=== PATIENT | male | born 1955 | race Caucasian/White ===

== ENCOUNTER 2021-03-01 14:05 | Emergency (ER) | payer BC, OTHER ==
[2021-03-01] MEDS ORDERED: Oxymetazoline 0.05% Nasal Spray 30 ML Bottle NAS STA (14:30)
--- NOTE | 2021-03-01 14:55 | EDM.PDOC ---
ED HPI GENERAL MEDICAL PROBLEM - General Chief Complaint: ENT Problem Stated Complaint: NOSE BLEED Time Seen by Provider: 03/01/21 14:23 Source of Information: Reports: Patient, RN Notes Reviewed History Limitations: Reports: No Limitations - History of Present Illness INITIAL COMMENTS - FREE TEXT/NARRATIVE: Patient is a 65-year-old male presenting to the emergency department with complaints of a left-sided nosebleed that began approximately 15 minutes prior to arrival to ER. States has had a couple nosebleeds over the last couple days but they have all resolved on their own. The nosebleeds have all been in the left nare. He reports that he did feel blood running down the back of his throat, however this is no longer occurring. Bleeding of the nare had resolved at the time of my exam. He has not been using any moisturizers to his naris since the nosebleeds began. Patient does seem quite anxious. States he felt lightheaded. Denies any chest pain or shortness of breath. - Related Data Allergies Allergy/AdvReac Type Severity Reaction Status Date / Time No Known Allergies Allergy Verified 03/01/21 14:21 Past Medical History Cardiovascular History: Reports: Hypertension Endocrine/Metabolic History: Reports: Diabetes, Type II Social & Family History - Tobacco Use Tobacco Use Status *Q: Never Tobacco User Second Hand Smoke Exposure: No - Caffeine Use Caffeine Use: Reports: Coffee - Recreational Drug Use Recreational Drug Use: No ED ROS ENT - Review of Systems Review Of Systems: Comprehensive ROS is negative, except as noted in HPI. ED EXAM, ENT - Physical Exam Exam: See Below Exam Limited By: No Limitations General Appearance: Alert, WD/WN, No Apparent Distress Nose: Normal Inspection, Dried Blood (Left nare). No: Active Bleeding Mouth/Throat: Normal Inspection, Normal Gums, Normal Lips, Normal Oropharynx, Normal Teeth Respiratory/Chest: No Respiratory Distress, Lungs Clear, Normal Breath Sounds, No Accessory Muscle Use, Chest Non-Tender Cardiovascular: Normal Peripheral Pulses, Regular Rate, Rhythm, No Edema, No Gallop, No JVD, No Murmur, No Rub Neurological: Alert, Oriented, CN II-XII Intact, Normal Cognition, Normal Gait, Normal Reflexes, No Motor/Sensory Deficits Psychiatric: Normal Affect, Normal Mood Skin: Warm, Dry, Intact, Normal Color, No Rash Course - Vital Signs Last Recorded V/S: Last Vital Signs Temp 98.2 F 03/01/21 14:20 Pulse 110 H 03/01/21 14:20 Resp 16 03/01/21 14:20 BP 168/89 H 03/01/21 14:20 Pulse Ox 96 03/01/21 14:20 - Orders/Labs/Meds Labs: Laboratory Tests 03/01/21 Range/Units 14:40 WBC 7.03 (4.23-9.07) K/mm3 RBC 4.88 (4.63-6.08) M/mm3 Hgb 14.7 (13.7-17.5) gm/dl Hct 42.5 (40.1-51.0) % MCV 87.1 (79.0-92.2) fl MCH 30.1 (25.7-32.2) pg MCHC 34.6 (32.2-35.5) g/dl RDW Std Deviation 40.5 (35.1-43.9) fL Plt Count 173 (163-337) K/mm3 MPV 10.2 (9.4-12.3) fl Neut % (Auto) 53.5 (34.0-67.9) % Lymph % (Auto) 37.7 (21.8-53.1) % [place] % (Auto) 7.3 (5.3-12.2) % Eos % (Auto) 0.9 (0.8-7.0) Baso % (Auto) 0.3 (0.1-1.2) % Neut # (Auto) 3.77 (1.78-5.38) K/mm3 Lymph # (Auto) 2.65 (1.32-3.57) K/mm3 [place] # (Auto) 0.51 (0.30-0.82) K/mm3 Eos # (Auto) 0.06 (0.04-0.54) K/mm3 Baso # (Auto) 0.02 (0.01-0.08) K/mm3 Meds: Medications Discontinued Medications Generic Name Dose Route Start Last Admin Trade Name Freq PRN Reason Stop Dose Admin Oxymetazoline HCl 1 ml 03/01/21 14:30 03/01/21 14:30 Oxymetazoline 0.05% Nasal [place] 30 Ml Bottle ADRIÁN 03/01/21 14:31 1 spray ONETIME STA Administration - Re-Assessments/Exams Free Text/Narrative Re-Assessment/Exam: Patient is a 65-year-old male presenting to the emergency department with complaints of left-sided nosebleed. Bleeding began about 15 minutes prior to arrival to ER. The time my exam, the bleeding had resolved. On exam, there is no definitive source for the bleeding. I did instill 2 sprays of Afrin into the nare. We will monitor him to ensure the bleeding does not recur. I have ordered a CBC. Blood pressure was elevated on triage at 168/89, however patient was quite anxious. Will monitor this to ensure it comes down. 03/01/21 15:11 Hemoglobin is normal at 14.7. Patient has had no further bleeding. I applied bacitracin ointment into the nare. Recommend applying twice daily for at least a week. He states he does have a house wide humidifier. He will turn this up. I will send the Afrin home with him should the bleeding resume. Discussed return precautions and follow-up in clinic as needed. Discharge instructions as documented. Departure - Departure Time of Disposition: 15:11 Disposition: Home, Self-Care 01 Condition: Good Clinical Impression: Epistaxis - Discharge Information *PRESCRIPTION DRUG MONITORING PROGRAM REVIEWED*: No *COPY OF PRESCRIPTION DRUG MONITORING REPORT IN PATIENT PINA: No Instructions: Nosebleed, Adult Referrals: Geraldo Wynn MD [Primary Care Provider] - Forms: ED Department Discharge Additional Instructions: You were seen in the emergency department today for evaluation for a nosebleed. The bleeding did stop on its own. Afrin nose spray was used to help shrink the blood vessels. No further bleeding was noted. Your hemoglobin was checked and was found to be normal at 14.7. Bacitracin ointment was placed into the nare. Recommend doing this twice daily for the next week. Increasing humidification in your home will also help with this. You may also purchase [id number] saline nasal spray to instill into the nare throughout the day. If bleeding should recur, pinch her nose and lean forward. Hold pressure until bleeding stops. If bleeding does not stop after 15 to 20 minutes, recommend return to ER. If these bleeds continue to recur, recommend follow-up in the clinic as you may require a referral to an ENT specialist. Sepsis Event Note (ED) - Evaluation Sepsis Screening Result: No Definite Risk - Focused Exam Vital Signs: Vital Signs Temp Pulse Resp BP Pulse Ox 03/01/21 14:20 98.2 F 110 H 16 168/89 H 96
== END 2021-03-01 15:15 | disposition home or self-care (01) ==
LOC: JD.ED 14:05
DX: R04.0 Epistaxis (principal); E11.9 Type 2 diabetes mellitus without complications; I10 Essential (primary) hypertension
CPT/HCPCS: 36415; 85025; 99283; A9270; 99282